=== PATIENT | female | born 1990 | race Caucasian/White ===

== ENCOUNTER 2016-12-06 19:00 | Emergency (ER) | payer BC ==
[2016-12-06 19:17] VITALS: BP 116/71; PULSE 81; TEMP 98.1; BMI 20.2
--- NOTE | 2016-12-06 19:29 | PDOC ---
History of Present Illness <Vic Gonzalez - Last Filed: 12/06/16 19:24> - General History Source: Patient Exam Limitations: No Limitations - History of Present Illness Initial Comments: 12/06/16 19:32 The patient is a 26 year old female brought via EMS, with no significant past medical history, who presents to the emergency department with a facial injury that occurred 1 hour prior to presentation. She reports that she was in the gym , when she picked up a 15 pound medicine ball and slammed it against the ground. The ball bounced up and hit her in the face. She notes that she bled from her nose and her mouth initially but on presentation there is no active bleeding. She notes that she feels as if her neck is sore. The patient denies chest pain, shortness of breath, headache and dizziness. Allergies: None Past surgical history: None reported Social history: No alcohol, tobacco or drug use reported <Dillon Chang - Last Filed: 12/06/16 19:33> - General Chief Complaint: Injury Stated Complaint: MOUTH, FACE, NOSE, INJURY Time Seen by Provider: 12/06/16 19:23 Past History - Past Medical History Psychiatric Problems: Yes (ADD) - Psycho/Social/Smoking Cessation Hx Anxiety: No Suicidal Ideation: No Smoking History: Never smoked Hx Alcohol Use: No Drug/Substance Use Hx: No <Vic Gonzalez - Last Filed: 12/06/16 19:24> <Dillon Chang - Last Filed: 12/06/16 19:33> - Past Medical History Allergies/Adverse Reactions: Allergies Allergy/AdvReac Type Severity Reaction Status Date / Time No Known Allergies Allergy Verified 12/06/16 19:01 Home Medications: Ambulatory Orders Control Pill 12/06/16 Dextroamphetamine/Amphetamine [Adderall Xr 30 mg Capsule] 30 mg PO DAILY Review of Systems - Review of Systems Able to Perform ROS?: Yes HEENTM: Yes: Nose Bleeding, Other (Mouth bleeding) Musculoskeletal: Yes: Neck Pain All Other Systems: Reviewed and Negative <Dillon Chang - Last Filed: 12/06/16 19:33> *Physical Exam - Vital Signs Last Vital Signs Temp Pulse Resp BP Pulse Ox 98.1 F 81 16 116/71 100 12/06/16 19:00 12/06/16 19:00 12/06/16 19:00 12/06/16 19:00 12/06/16 19:00 - Physical Exam General Appearance: Yes: Nourished, Appropriately Dressed. No: Apparent Distress HEENT: positive: Other (mild erythema and edema nose and upper lip. stable midfqace. no septal hematoma. stable teeth.) Neck: positive: Supple, Other (mild lt trpz tenderness). negative: Tender Respiratory/Chest: positive: Lungs Clear, Normal Breath Sounds. negative: Chest Tender Cardiovascular: positive: Regular Rhythm, Regular Rate Gastrointestinal/Abdominal: positive: Soft Extremity: positive: Normal Capillary Refill, Normal Inspection, Normal Range of Motion, Pelvis Stable. 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 NML intact, Fully Oriented, Alert, Normal Mood/ Affect, Normal Response, Motor Strength 5/5 <Vic Gonzalez - Last Filed: 12/06/16 19:24> - Vital Signs Last Vital Signs Temp Pulse Resp BP Pulse Ox 98.1 F 81 16 116/71 100 12/06/16 19:00 12/06/16 19:00 12/06/16 19:00 12/06/16 19:00 12/06/16 19:00 <Dillon Chang - Last Filed: 12/06/16 19:33> *DC/Admit/Observation/Transfer <Vic Gonzalez - Last Filed: 12/06/16 19:24> - Attestations Scribe Attestion: 12/06/16 19:33 Documentation prepared by Dillon Chang, acting as medical supervisor for Vic Gonzalez MD <Dillon Chang - Last Filed: 12/06/16 19:33> Diagnosis at time of Disposition: Facial trauma Qualifiers: Encounter type: initial encounter Qualified Code(s): S09.93XA - Unspecified injury of face, initial encounter - Discharge Dispostion Condition at time of disposition: Stable - Patient Instructions Printed Discharge Instructions: DI for Closed Head Injury Additional Instructions: IBUPROFEN 600 MG 3 TIMES A DAY FOR 3 DAYS ICE TO AREA ON AND OFF TONIGHT CALL YOUR DOCTOR AND DENTIST FOR FOLLOW UP
== END 2016-12-06 19:40 | disposition home or self-care (01) ==
LOC: FER 19:00
DX: S09.93XA Unspecified injury of face, initial encounter (principal); W21.09XA Struck by other hit or thrown ball, initial encounter; Y93.B9 Activity, other involving muscle strengthening exercises; Y92.39 Other specified sports and athletic area as the place of occurrence of the external cause
CPT/HCPCS: 99282-25